=== PATIENT | female | born 1945 | race Caucasian/White ===

== ENCOUNTER 2022-07-06 11:19 | Outpatient (CLI) | payer MEDICARE, OTHER, SELFPAY ==
[2022-07-06 12:19] LABS: Anion Gap 8 mmol/L (8-16); Blood Urea Nitrogen 23 mg/dL (7-17); Calcium 8.9 mg/dL (8.4-10.2); Carbon Dioxide 28 mmol/L (22-30); Chloride 105 mmol/L (98-107); Estimated Glomerular Filt Rate 40; Glucose 115 mg/dL (65-110); Potassium 4.5 mmol/L (3.4-5.0); Sodium 141 mmol/L (137-145)
== END 2022-07-06 11:20 | disposition home or self-care (01) ==
LOC: ANHSURGERY 11:31
PROVIDERS: Anesthesiology; PCP Nurse Practitioner; Visit Provider Plastic Surgery
DX: Z51.81 Encounter for therapeutic drug level monitoring (principal); Z79.899 Other long term (current) drug therapy
CPT/HCPCS: 36415; 80048

== ENCOUNTER 2022-07-08 01:23 | Day surgery (SDC) | payer MEDICARE, OTHER, SELFPAY ==
[2022-06-25 09:37] VITALS: BMI 38.4
--- NOTE | 2022-06-25 10:07 | PC.NURSE ---
Report to the Outpatient Waiting Room, entrance under the green pavilion located off [facility], at time __6:00AM on date __07/08/22 . Planned Procedure Time: __7:30AM . Time changes happen often and if your time is changed the preop area will call you the afternoon before. - You and your visitor will be asked to self-screen and do not enter if you have any COVID symptoms. - We encourage only one visitor and NO visitors under age 16 are allowed at this time. Your visitor will receive communication by the phone number that is given day of service. - The patient visitor is requested to social distance or may leave the building when not with patient due to restrictions. - A mask is required within the hospital. Patients may have clear liquids (water, carbonated beverages, clear teas, apple juice) until 3 hours prior to surgery with a maximum of 20 ounces. - No food from midnight until time of surgery Take the following medications with a SIP of water the morning of surgery: __BUPROPION, METOPROLOL, TRAMADOL NEEDED Medications to discontinue per physician ____HOLD ALL VITAMINS/SUPPLEMENTS 3 DAYS PRE-OP Date to take last dose____07/04/22 REMAIN ON ELIQUIS & ASPIRIN 81MG PER DR BERNARDO Please no make-up, nail ukrainian, hairspray, perfume, deodorant, or body powder the day of surgery. No jewelry (including any body piercings) or valuables the day of surgery, leave them at home. Please take a shower or bath the night before, or the morning of, surgery with an antibacterial soap. Wear comfortable, loose fitting clothing. Children are encouraged to wear pajamas. - Jewelry must be removed prior to entering the operating room. Rings and piercings that are not removed may be cut off. - The hospital will not accept responsibility for valuables. - Please leave all valuables, including medications, at home the day of surgery. If you are going home after surgery, a licensed crew truck driver must drive you home. - NO public transportation without another adult. - We recommend that an adult stay with you for 24 hours following discharge. - We also recommend that you do not drive, make important decision, drink alcoholic beverages, or take any drugs that were not prescribed by your health care provider for at least 24 hours after your discharge time. Follow any additional instructions given to you from your surgeon. If you or anyone in your household have experienced Covid symptoms in the past week, please notify your surgeon or the nurse liaison at the phone number below for possible testing. Telephone instructions given to __PATIENT___and asked if any additional questions and then verbalized understanding. Patient advised to call surgeon office or pre surgery nurse liaison [phone] if any additional questions.
--- NOTE | 2022-07-07 14:02 | WPDANESEPPF ---
Anes - Initial Pre Proc Eval Procedure: Operation Date: 07/08/22 07:30 Proposed Procedures p Excision Basal Cell Carcinoma Nasal Tip with Frozen Section, Possible Full Thickness Skin Graft or Local Tissue Transfer - Carson Freitas MD Date/Time: 07/07/22 14:02 Surgeon: Carson Freitas MD Pre Op Diagnosis: BCCA nasal tip Patient Data Age: 77 Gender: F Height: 1.68 m Weight: 108 kg Allergies Allergy/AdvReac Type Severity Reaction Status Date / Time No Known Allergies Allergy Unknown Verified 07/08/22 06:09 Home Medications Medication Instructions Recorded Confirmed Type apixaban 5 mg tablet (Eliquis) 5 mg PO BID 06/25/22 07/08/22 History ascorbic acid (vitamin C) 1,000 mg 1 cap PO DAILY 06/25/22 07/08/22 History capsule,extended release aspirin 81 mg tablet,delayed 81 mg PO DAILY 06/25/22 07/08/22 History release atorvastatin 80 mg tablet 80 mg PO HS 06/25/22 07/08/22 History biotin 500 mcg capsule 2,500 mcg PO DAILY 06/25/22 07/08/22 History bupropion HCl 150 mg tablet,12 hr 150 mg PO QAM 06/25/22 07/08/22 History sustained-release cyanocobalamin (vitamin B-12) 2,000 mcg PO DAILY 06/25/22 07/08/22 History 2,000 mcg tablet ezetimibe 10 mg tablet 10 mg PO QAM 06/25/22 07/08/22 History hydrochlorothiazide 12.5 mg tablet 12.5 mg PO QAM 06/25/22 07/08/22 History lisinopril 5 mg tablet 10 mg PO BID 06/25/22 07/08/22 History metoprolol tartrate 25 mg tablet 25 mg PO QAM 06/25/22 07/08/22 History montelukast 10 mg tablet 10 mg PO QAM 06/25/22 07/08/22 History omeprazole 20 mg capsule,delayed 20 mg PO QAM 06/25/22 07/08/22 History release tramadol 50 mg tablet 50 mg PO Q6-8H PRN Pain 06/25/22 07/08/22 History Patient hx anesthesia problems: none Family hx anesthesia problems: none Results Review: All pre-operative results and documents have been reviewed as part of the pre-operative evaluation. [facility] Past Medical History Medical History (Updated 07/08/22 @ 06:56 by Ld Myers MD) Asthma CAD (coronary artery disease) HTN (hypertension) Hx of myocardial infarction Hyperlipidemia Obesity VIKAS (obstructive sleep apnea) PVD (peripheral vascular disease) Surgical History Surgical History (Updated 07/08/22 @ 06:56 by Ld Myers MD) History of coronary artery stent placement Social History Social History Smoking packs per day: 1 Smoking cigarettes per day: 20.0 Years smoked: 50 Smoking pack-years: 50.00 Smoking status: Former smoker Tobacco type: cigarettes Smoking end date: 01/15/04 Alcohol intake: current Substance use: never Living arrangements: alone Spiritual care concerns: No Anes - Eval Final PreProcedure Day of Procedure 07/07/22 14:02 Patient weight: obese Heart: regular rate and rhythm Lungs: clear to auscultation and normal air movement Airway: Mallampati scale class II Neurological: alert and oriented Last oral intake: >/= 8 hours ASA classification: III Emergent: no Anesthetic plan: proceed Anesthesia type and monitoring: general GIVS Results Review: All pre-operative results and documents have been reviewed as part of the pre-operative evaluation. Informed Consent: The patient's anesthetic plan and its attendant risks and benefits were discussed with the patient/family/POA. Questions were solicited and answers provided to the satisfaction of the patient/family/POA.
[2022-07-08] MEDS: LACTATED RINGERS 1,000 ML 30 ML IV CONT (06:30)
[2022-07-08 06:31] VITALS: BP 141/51; PULSE 53; RESP 18; TEMP 36.3; O2SAT 98
--- NOTE | 2022-07-08 07:11 | WPDHPUPDATE1 ---
History and Physical Update Update Date/Time: 07/08/22 07:11 History and Physical has been reviewed, including an updated exam of the patient. There are NO changes in the patient's condition. Risks, benefits, and alternatives have been discussed and questions answered. Patient agrees to proceed with procedure.
[2022-07-08] MEDS: LIDO 2%/EPINEPHRINE 1:100,000 50 ML VIAL 10 ML INFILTRATE (07:25)
[2022-07-08] MEDS: BACITRACIN OINTMENT 15 GM TUBE 1 APPLIC TOPICAL (07:52)
[2022-07-08 08:36] VITALS: BP 132/40; PULSE 50; RESP 16; O2SAT 94
[2022-07-08 09:00] VITALS: BP 125/40; PULSE 49; RESP 16; O2SAT 92
--- NOTE | 2022-07-08 09:07 | W.PM.PROC2 ---
Procedure Note - Detailed Date of Procedure 07/08/22 Pre-op Diagnosis BCCA nasal tip Post-op Diagnosis Same Procedure Performed 1 cm excision of basal cell carcinoma of the nasal tip with frozen section and complex repair 4 cm Surgeon Carson Freitas MD Anesthesia MAC Indications Biopsy Findings Margins free Description of Procedure The site on this patient's nose was marked with her consent in the holding area. She was then taken to the operating room where she was placed supine on the operating table. She was given IV sedation with nasal prongs and the face was prepped and draped in usual fashion. The time-out was held and confirmed. The site was marked for excision. It was locally infiltrated with 2% lidocaine with epinephrine. The incision was made as marked. The most caudal end was marked with a suture for 12 o'clock. The specimen was sent to pathology were the pathologist reported basal cell carcinoma with free margins. The wound margins were undermined widely in all directions, more than a cm. The lengthy standing cones were removed in both directions to preserve nasal contour as we closed this in 2 layers. The ellipse included intradermal 4-0 Vicryl and interrupted and running 5 0 nylon. Estimated Blood Loss 5 Drains No Packing No Pathology Yes Complications No immediate complications Condition Stable Disposition Same day
[2022-07-08 09:30] VITALS: BP 131/39; PULSE 51; RESP 16
== END 2022-07-08 09:44 | disposition home or self-care (01) ==
PROVIDERS: PCP Nurse Practitioner; Visit Provider Plastic Surgery
PROC: (CPT 11641; principal; 2022-07-08 07:30)
DX: C44.311 Basal cell carcinoma of skin of nose (principal); I25.10 Atherosclerotic heart disease of native coronary artery without angina pectoris; I25.2 Old myocardial infarction; I10 Essential (primary) hypertension; J45.909 Unspecified asthma, uncomplicated; E78.5 Hyperlipidemia, unspecified; G47.33 Obstructive sleep apnea (adult) (pediatric); I73.9 Peripheral vascular disease, unspecified; E66.9 Obesity, unspecified; Z68.38 Body mass index [BMI] 38.0-38.9, adult; Z79.01 Long term (current) use of anticoagulants; Z79.82 Long term (current) use of aspirin; Z95.5 Presence of coronary angioplasty implant and graft; Z87.891 Personal history of nicotine dependence
CPT/HCPCS: 11641; 13152; 88305; 88331; A9270; J2250; J2405; J2704; J3010; J7120